=== PATIENT | female | born 1975 | race Caucasian/White ===

== ENCOUNTER 2017-10-06 20:54 | Emergency (ER) | payer OTHER ==
[2017-10-06 21:25] LABS: BASOPHILS # (AUTO) 0.1 10^3/uL (0.0-0.1); BASOPHILS % (AUTO) 0.8 %; EOSINOPHILS # (AUTO) 0.1 10^3/uL (0.0-0.7); EOSINOPHILS % (AUTO) 1.2 %; HCT - HEMATOCRIT 43.2 % (37.0-47.0); HGB - HEMOGLOBIN 14.2 g/dL (12.0-16.0); LYMPHOCYTES # (AUTO) 2.6 10^3/uL (1.5-3.5); LYMPHOCYTES % (AUTO) 30.4 %; MEAN CORPUSCULAR VOLUME 81.8 fL (81.0-99.0); MEAN PLATELET VOLUME 8.2 fL (7.9-10.8); MONOCYTES # (AUTO) 0.6 10^3/uL (0.0-1.0); NEUTROPHILS # (AUTO) 5.1 10^3/uL (1.5-6.6); NEUTROPHILS % (AUTO) 60.6 %; RED BLOOD COUNT 5.28 10^6/uL (4.20-5.40); RED CELL DISTRIBUTION WIDTH 13.2 % (12.0-15.0); UNCORRECTED WHITE BLOOD COUNT 8.4 x10^3/uL; WHITE BLOOD COUNT 8.4 x10^3/uL (4.8-10.8)
[2017-10-06 21:36] LABS: ALBUMIN/GLOBULIN RATIO 1.1 (1.0-2.2); BILIRUBIN,TOTAL 0.3 mg/dL (0.2-1.0); CALCIUM 9.1 mg/dL (8.5-10.3); CREATININE 0.6 mg/dL (0.4-1.0); POTASSIUM 3.7 mmol/L (3.5-5.0); TOTAL PROTEIN 8.1 g/dL (6.7-8.2)
--- NOTE | 2017-10-06 21:59 | XRAY Preliminary Report ---
Exam: XR CHEST 1 VIEW IMPRESSION: Normal single view chest. [facility] SITE ID: [id number]
--- NOTE | 2017-10-06 22:02 | XRAY Report ---
EXAM: CHEST RADIOGRAPHY EXAM DATE: 10/06/2017 09:42 PM. CLINICAL HISTORY: Chest pain, sob. COMPARISON: None. TECHNIQUE: 1 view. FINDINGS: Lungs/Pleura: No focal opacities evident. No pleural effusion. No pneumothorax. Mediastinum: Within exam limitations, the cardiomediastinal contour is normal. Other: None. IMPRESSION: Normal single view chest. [facility] Referring Provider Line: [phone] SITE ID: [id number]
[2017-10-06 23:11] VITALS: BP 141/85
--- NOTE | 2017-10-06 23:12 | ED Physician Documentation ---
PD HPI CHEST PAIN - Stated complaint Stated Complaint: LIGHTHEADED,SHORTNESS OF AIR - Chief complaint Chief Complaint: Cardiac - History obtained from History obtained from: Patient - History of Present Illness Timing - onset: How many days ago (6) Timing - details: Gradual onset, Intermittant, Waxing and waning Quality: Sharp Location: Left chest Worsened by: Movement, Palpation, Position. No: Exertion, Inspiration Associated symptoms: No: Shortness of air, Diaphoresis, Nausea, Vomiting Similar symptoms before: No diagnosis Recently seen: Not recently seen - Additional information Additional information: Patient is a 42 year old female with a history of hypothyroidism who is presenting to the emergency department for intermittent left sided chest pain. Patient states that it has been coming and going over the last week. Patient states that it might be due to the fact that she has been sleeping on the couch on her arm since she is nervous about her new neighborhood. Patient also states that she has been worried since her has been deployed. Patient denies any cardiac history or any exertional component. Review of Systems Constitutional: denies: Fever, Chills Eyes: denies: Decreased vision Ears: denies: Ear pain, Drainage/discharge Nose: reports: Reviewed and negative Throat: reports: Reviewed and negative Cardiac: reports: Chest pain / pressure. denies: Palpitations, Pedal edema, Calf pain Respiratory: denies: Dyspnea, Cough, Wheezing GI: denies: Nausea, Vomiting : reports: Reviewed and negative Skin: denies: Rash, Lesions Musculoskeletal: denies: Neck pain, Back pain, Extremity pain, Joint pain Neurologic: denies: Generalized weakness, Focal weakness Immunocompromised: denies: Immunocompromised PD PAST MEDICAL HISTORY - Past Medical History Cardiovascular: High cholesterol GI: GERD Other Past Medical History: hypothyroid, hasimotos - Past Surgical History Past Surgical History: No - Present Medications Home Medications: Ambulatory Orders Medication Instructions Recorded Confirmed Atorvastatin [Lipitor] 10 mg PO DAILY 10/06/17 10/06/17 Levothyroxine Sodium [Synthroid] 100 mcg PO DAILY 10/06/17 10/06/17 metFORMIN [Glucophage] 500 mg PO DAILY 10/06/17 10/06/17 - Allergies Allergies/Adverse Reactions: Allergies Allergy/AdvReac Type Severity Reaction Status Date / Time No Known Drug Allergies Allergy Verified 10/06/17 21:10 - Social History Does the pt smoke?: No Smoking Status: Never smoker Does the pt drink ETOH?: No Does the pt have substance abuse?: No - Immunizations Immunizations are current?: Yes PD ED PE NORMAL - Vitals Vital signs reviewed: Yes - General General: Alert and oriented X 3, No acute distress - HEENT HEENT: Atraumatic, PERRL - Neck Neck: Supple, no meningeal sign, No JVD - Cardiac Cardiac: RRR, No murmur - Respiratory Respiratory: No respiratory distress, Clear bilaterally - Abdomen Abdomen: Soft, Non tender, Non distended - Derm Derm: Normal color, Warm and dry, No rash - Extremities Extremities: No deformity, Normal ROM s pain, No calf tenderness / cord - Neuro Neuro: Alert and oriented X 3, No motor deficit, No sensory deficit, Normal speech - Psych Psych: Normal mood PD ED PE EXPANDED - Cardiac Cardiac: Chest wall TTP (tenderness to palpation of left chest) Results - Vitals Vitals: Vital Signs - 24 hr 10/06/17 10/06/17 10/06/17 21:00 21:48 23:11 Temperature 36.3 C L Heart Rate 92 82 88 Respiratory 12 16 16 Rate Blood Pressure 158/73 H 139/79 H 141/85 H Blood Pressure 139/79 H [Right] O2 Saturation 96 96 96 Oxygen O2 Source Room air - EKG (time done) 2110 Rate: Rate (enter#) (85) Rhythm: NSR [place]: Normal Intervals: Normal [place] QRS: Normal Ischemia: Non specific changes Compare to prior EKG: Old EKG unavailable Computer interpretation: Agree with computer - Labs Labs: Laboratory Tests 10/06/17 10/06/17 10/06/17 21:15 21:15 21:15 WBC 8.4 RBC 5.28 Hgb 14.2 Hct 43.2 MCV 81.8 MCH 27.0 MCHC 33.0 RDW 13.2 Plt Count 276 MPV 8.2 Neut # 5.1 Lymph # 2.6 Frio # 0.6 Eos # 0.1 Baso # 0.1 Absolute Nucleated RBC 0.00 Nucleated RBC % 0.0 Sodium 138 Potassium 3.7 Chloride 100 L Carbon Dioxide 25 Anion Gap 13.0 BUN 11 Creatinine 0.6 Estimated GFR (MDRD) 109 Glucose 114 H Calcium 9.1 Total Bilirubin 0.3 AST 54 H ALT 56 Alkaline Phosphatase 63 Troponin I < 0.04 Total Protein 8.1 Albumin 4.2 Globulin 3.9 Albumin/Globulin Ratio 1.1 Lipase 23 - Rads (name of study) chest x-ray Radiology: Final report received (no acute disease process) PD MEDICAL DECISION MAKING - ED course Complexity details: reviewed old records, reviewed results, re-evaluated patient , considered differential, d/w patient ED course: Patient was seen and examined at bedside. Patient was well appearing. ekg was performed and was normal sinus. labs were drawn and chest x-ray was performed. Patient's HEART score was 1 and was PERC negative. Patient required no further work up and was stable for discharge with outpatient follow up. Departure - Departure Disposition: 01 Home, Self Care Clinical Impression: Atypical chest pain Condition: Good Instructions: ED Chest Pain Atypical Unkn Cause Follow-Up: JUSTICE DAN [Primary Care Provider] - Comments: Your diagnostics today were within normal limits. While it is difficult to say what is causing your pain exactly it is unlikely to be cardiac in nature. that being said it is only a snap shot in time and you should follow up with your new doctor. You may return to the emergency department at any time for new, worsening or uncontrollable symptoms. Discharge Date/Time: 10/06/17 23:29
== END 2017-10-06 23:29 | disposition home or self-care (01) ==
LOC: ED 20:54
DX: R07.89 Other chest pain (principal); E03.9 Hypothyroidism, unspecified; E78.00 Pure hypercholesterolemia, unspecified; K21.9 Gastro-esophageal reflux disease without esophagitis
CPT/HCPCS: 36415; 71010; 80053; 83690; 84484; 85025; 93005; 99284

== ENCOUNTER 2019-05-03 20:59 | Emergency (ER) | payer OTHER ==
[2019-05-03 22:01] LABS: BILIRUBIN,URINE NEGATIVE (NEGATIVE); GLUCOSE, URINE (UA) NEGATIVE (NEGATIVE); KETONES,URINE (UA) NEGATIVE (NEGATIVE); LEUKOCYTE ESTERASE, URINE TRACE (NEGATIVE); NITRITE,URINE NEGATIVE (NEGATIVE); OCCULT BLOOD,URINE LARGE (NEGATIVE); PROTEIN,URINE NEGATIVE (NEGATIVE); UROBILINOGEN,URINE 0.2 (NORMAL) E.U./dL (NORMAL)
[2019-05-03 22:04] LABS: CLARITY,URINE HAZY (CLEAR); HCG UR QUAL NEGATIVE
[2019-05-03 22:08] LABS: BASOPHILS # (AUTO) 0.1 10^3/uL (0.0-0.1); BASOPHILS % (AUTO) 1.1 %; EOSINOPHILS # (AUTO) 0.1 10^3/uL (0.0-0.7); EOSINOPHILS % (AUTO) 1.6 %; HGB - HEMOGLOBIN 14.1 g/dL (12.0-16.0); LYMPHOCYTES # (AUTO) 2.4 10^3/uL (1.5-3.5); LYMPHOCYTES % (AUTO) 32.4 %; MEAN CORPUSCULAR HEMOGLOBIN 26.6 pg (27.0-31.0); MEAN CORPUSCULAR HGB CONC 32.7 g/dL (32.0-36.0); MEAN CORPUSCULAR VOLUME 81.2 fL (81.0-99.0); MEAN PLATELET VOLUME 8.5 fL (7.9-10.8); MONOCYTES # (AUTO) 0.5 10^3/uL (0.0-1.0); MONOCYTES % (AUTO) 6.3 %; NEUTROPHILS # (AUTO) 4.4 10^3/uL (1.5-6.6); NEUTROPHILS % (AUTO) 58.6 %; PLT - PLATELET COUNT 285 10^3/uL (130-450); RED BLOOD COUNT 5.31 10^6/uL (4.20-5.40); RED CELL DISTRIBUTION WIDTH 13.4 % (12.0-15.0); WHITE BLOOD COUNT 7.5 x10^3/uL (4.8-10.8)
[2019-05-03 22:15] LABS: RBC,URINE TNTC /HPF (0-5)
[2019-05-03 22:16] LABS: BACTERIA,URINE None Seen /HPF (None Seen); SQUAMOUS EPITHELIAL CELL,UR RARE Squamous (<= Few)
[2019-05-03 22:18] LABS: ALBUMIN 4.5 g/dL (3.2-5.5); ALBUMIN/GLOBULIN RATIO 1.2 (1.0-2.2); BILIRUBIN,TOTAL 0.6 mg/dL (0.2-1.0); CALCIUM 9.3 mg/dL (8.5-10.3); CREATININE 0.6 mg/dL (0.4-1.0); TOTAL PROTEIN 8.2 g/dL (6.7-8.2)
--- NOTE | 2019-05-03 22:24 | ED Physician Documentation ---
PD HPI FEMALE - Stated complaint Stated Complaint: DIZZY/FEM - Chief complaint Chief Complaint: Abd Pain - History obtained from History obtained from: Patient - History of Present Illness Timing - onset: How many days ago (2) Timing - duration: Days (2) Timing - details: Abrupt onset Associated symptoms: Abdominal pain (Just cramping due to her menstrual cycle), Vaginal bleeding. No: Fever, Dysuria, Urinary frequency, Hematuria Contributing factors: No: Similar symptoms before: Diagnosis (Polycystic ovarian syndrome) Recently seen: Clinic - Additional information Additional information: This is a 43-year-old woman who presents with a friend complains that she started her menses about 11 days ago and it has been very heavy passing lots of blood clots. Is not unusual for her to have a heavy menstrual cycle because she has PCOS however this has gone on longer than normal. Yesterday and today she started feeling dizzy with any movement changes. She is been nauseous. She went to see her primary care provider who kofi some blood work that she has not gotten the results of yet and schedule her for an ultrasound 8 days from now. She is having some abdominal cramping due to the menses. She denies history of anemia. She has not passed out. Review of Systems Constitutional: denies: Fever Nose: denies: Congestion Throat: denies: Sore throat Cardiac: denies: Palpitations Respiratory: denies: Dyspnea, Cough GI: reports: Abdominal Pain (Cramping), Nausea. denies: Vomiting : reports: Vaginal bleeding. denies: Dysuria, Frequency Neurologic: reports: Other (Dizziness). denies: Syncope, LOC PD PAST MEDICAL HISTORY - Past Medical History Past Medical History: Yes Cardiovascular: High cholesterol Endocrine/Autoimmune: HyPOthyroidism GI: GERD MUSIC PROMOTER: Other (Polycystic ovarian syndrome) - Past Surgical History Past Surgical History: No - Present Medications Home Medications: Ambulatory Orders Medication Instructions Recorded Confirmed Levothyroxine Sodium [Synthroid] 100 mcg PO DAILY 10/06/17 05/03/19 RX: metFORMIN [Glucophage] 500 mg PO DAILY 10/06/17 05/03/19 Meclizine [Antivert] 25 mg PO Q6H PRN #10 tablet 05/04/19 - Allergies Allergies/Adverse Reactions: Allergies Allergy/AdvReac Type Severity Reaction Status Date / Time No Known Drug Allergies Allergy Verified 05/03/19 21:06 - Social History Does the pt smoke?: No Smoking Status: Never smoker Does the pt drink ETOH?: No Does the pt have substance abuse?: No - Immunizations Immunizations are current?: Yes PD ED PE NORMAL - Vitals Vital signs reviewed: Yes (Overweight 43-year-old woman who is not in acute distress.) - General General: Alert and oriented X 3, No acute distress, Well developed/nourished - HEENT HEENT: Atraumatic, PERRL, EOMI, Ears normal, Moist mucous membranes, Pharynx benign - Neck Neck: Supple, no meningeal sign, No adenopathy - Cardiac Cardiac: RRR, No murmur - Respiratory Respiratory: No respiratory distress - Abdomen Abdomen: Normal bowel sounds, Soft, Non tender, Non distended - Derm Derm: Normal color, Warm and dry, No rash - Neuro Neuro: Alert and oriented X 3, stockroom keeper 2-12 intact, No motor deficit, No sensory deficit, Normal speech - Psych Psych: Normal mood, Normal affect Results - Vitals Vitals: Vital Signs - 24 hr 05/03/19 05/03/19 05/04/19 21:02 23:10 00:21 Temperature 37 C Heart Rate 82 73 Heart Rate [ 84 Sitting] Heart Rate [ 85 Standing] Heart Rate [ 73 Supine] Respiratory 18 16 17 Rate Blood Pressure 141/74 H 131/49 H Blood Pressure 164/86 H [Sitting] Blood Pressure 144/85 H [Standing] Blood Pressure 131/49 H [Supine] O2 Saturation 98 98 Oxygen O2 Source Room air - Labs Labs: Laboratory Tests 05/03/19 05/03/19 05/03/19 21:30 21:58 21:58 WBC 7.5 RBC 5.31 Hgb 14.1 Hct 43.1 MCV 81.2 MCH 26.6 L MCHC 32.7 RDW 13.4 Plt Count 285 MPV 8.5 Neut # (Auto) 4.4 Lymph # (Auto) 2.4 [place] # (Auto) 0.5 Eos # (Auto) 0.1 Baso # (Auto) 0.1 Absolute Nucleated RBC 0.00 Nucleated RBC % 0.0 Sodium 140 Potassium 3.5 Chloride 103 Carbon Dioxide 26 Anion Gap 11.0 BUN 11 Creatinine 0.6 Estimated GFR (MDRD) 109 Glucose 108 H Calcium 9.3 Total Bilirubin 0.6 AST 31 ALT 27 Alkaline Phosphatase 51 Total Protein 8.2 Albumin 4.5 Globulin 3.7 Albumin/Globulin Ratio 1.2 Lipase 29 Urine Color LT RED Urine Clarity HAZY Urine pH 7.0 Ur Specific [place] <=1.005 Urine Protein NEGATIVE Urine Glucose (UA) NEGATIVE Urine Ketones NEGATIVE Urine Occult Blood LARGE H Urine Nitrite NEGATIVE Urine Bilirubin NEGATIVE Urine Urobilinogen 0.2 (NORMAL) Ur Leukocyte Esterase TRACE H Urine RBC TNTC H Urine WBC 0-3 Ur Squamous Epith Cells RARE Squamous Urine Bacteria None Seen Ur Microscopic Review INDICATED Urine Culture Comments INDICATED Urine HCG, Qual NEGATIVE PD MEDICAL DECISION MAKING - ED course Complexity details: d/w patient, d/w family ED course: Patient does not have anemia. Her urine does have some leukocyte esterase and a culture has been obtained have not started her on antibiotics. Orthostatic vital signs were obtained and she did have a drop in her blood pressure from lying to sitting but no increase in her pulse rate.She was encouraged to start an iron supplement and follow-up with her primary care provider for results of the ultrasound. Departure - Departure Disposition: 01 Home, Self Care Clinical Impression: Vertigo, Dysfunctional uterine bleeding Condition: Good Instructions: ED Vertigo Unspecified Follow-Up: JUSTICE DAN [Primary Care Provider] - Prescriptions: Meclizine [Antivert] 25 mg PO Q6H PRN #10 tablet PRN Reason: Dizziness Comments: Start an [id number] iron supplement. Be sure to take it with food. May try the Antivert if you are still experiencing dizziness. Keep the appointment scheduled for the ultrasound of the pelvis. Follow-up with your primary care provider for further evaluation particularly if the dizziness continues for another 7 to 10 days. Discharge Date/Time: 05/04/19 00:26
[2019-05-03 23:13] VITALS: BP 131/49
== END 2019-05-04 00:26 | disposition home or self-care (01) ==
LOC: ED 20:59
DX: N93.8 Other specified abnormal uterine and vaginal bleeding (principal); E28.2 Polycystic ovarian syndrome; R42 Dizziness and giddiness; R11.0 Nausea; R82.998 Other abnormal findings in urine
CPT/HCPCS: 36415; 80053; 81001; 81003; 81025; 83690; 85025; 87086; 99283

== ENCOUNTER 2020-01-11 13:43 | Outpatient (CLI) | payer OTHER ==
--- NOTE | 2020-01-12 16:09 | Mammography Report ---
Reason: ROUTINE MAMMO Procedure Date: 01/11/2020 Accession Number: [id number] / [id number] Procedure: MGN - Screening Mammo Dig Bilat CPT Code: Final Report FULL RESULT: EXAM: Screening Mammo Dig Bilat DATE: 01/11/2020 2:12 PM CLINICAL HISTORY: Screening encounter. History of nulliparity. History of early menses. TECHNIQUE: (B) - Bilateral CC, laterally exaggerated CC, MLO views were obtained. COMPARISON: None PARENCHYMAL PATTERN: (A) - The breast(s) demonstrate(s) scattered fibroglandular densities. FINDINGS: There are no suspicious masses, calcifications, or areas of distortion. IMPRESSION: Negative examination. BI-RADS category 1. RECOMMENDATION: (ANNUAL) - Recommend routine annual screening mammography. BI-RADS CATEGORY: (1) - Negative. STANDARD QUALIFYING STATEMENTS: 1. This examination was not reviewed with the aid of Computer-Aided Detection (CAD). 2. A negative or benign imaging report should not preclude biopsy if clinically suspicious findings are present. 3. Dense breasts may obscure an underlying neoplasm. 4. This examination was reviewed without the aid of 3D breast imaging (tomosynthesis).
== END 2020-01-11 13:44 | disposition home or self-care (01) ==
LOC: DI.N 13:43
DX: Z12.31 Encounter for screening mammogram for malignant neoplasm of breast (principal)
CPT/HCPCS: 77067